=== PATIENT | male | born 1965 | race African-American/Black ===

== ENCOUNTER 2017-06-16 07:47 | Emergency (ER) | payer MEDICAID ==
[~2017-06-16] VITALS: Ht 175.3 cm; Wt 80.0 kg
[2017-06-16] MEDS ORDERED: SODIUM CHLORIDE 0.9% 1,000 ML IV ONE (08:05)
[2017-06-16] MEDS ORDERED: ONDANSETRON HCL 4MG/2ML VIAL IV ONE (08:15)
[2017-06-16] MEDS ORDERED: MORPHINE SULFATE 4 MG/ML CPJ (NOT FOR IM USE) IV ONE (08:15)
[2017-06-16 08:25] LABS: BASOPHILS % 0.7 % (0.0-2.0); HEMATOCRIT. 39.2 % (42.0-52.0); HEMOGLOBIN. 13.2 g/dL (14.0-18.0); LYMPHOCYTES % 31.3 % (20.0-50.0); MEAN CORPUSCULAR VOLUME 91.7 fL (80.0-94.0); MEAN PLATELET VOLUME 8.1 fl (7.4-10.4); MONOCYTES % 9.2 % (2.0-8.0); NEUTROPHILS % 57.8 % (40.0-76.0); PLATELET 209 x1000/uL (130-400); RED BLOOD CELL COUNT 4.27 mill/uL (4.7-6.1); RED CELL DISTRIBUTION WIDTH 14.5 % (11.6-14.6)
[2017-06-16 08:31] LABS: PROTHROMBIN TIME 10.9 sec (9.4-11.6)
[2017-06-16 08:37] LABS: CARBON DIOXIDE 26 mEq/L (21-32); CHLORIDE 110 mEq/L (98-107); ETHANOL BLOOD < 10 mg/dL; LDL CHOLESTEROL 119 mg/dL (5-100)
[2017-06-16 08:40] LABS: CREATINE KINASE 136 IU/L (39-308); TROPONIN I 0.02 ng/mL (0.00-0.04)
[2017-06-16] MEDS ORDERED: DEXAMETHASONE 10 MG/ML VIAL IV ONE (09:45)
[2017-06-16 09:53] LABS: CLARITY URINE CLEAR (CLEAR); COLOR URINE YELLOW (YELLOW); GLUCOSE URINE NEGATIVE (NEGATIVE); KETONES URINE NEGATIVE (NEGATIVE); LEUKOCYTE ESTERASE URINE NEGATIVE (NEGATIVE); NITRITE URINE NEGATIVE (NEGATIVE); OCCULT BLOOD URINE TRACE (NEGATIVE); PROTEIN URINE NEGATIVE (NEGATIVE); SPECIFIC GRAVITY URINE 1.032 (1.005-1.030)
[2017-06-16 10:04] LABS: *AMPHETAMINES SCREEN URINE NEGATIVE (NEGATIVE); *BARBITURATES SCREEN URINE NEGATIVE (NEGATIVE); *BENZODIAZEPINES SCREEN URINE NEGATIVE (NEGATIVE); *COCAINE SCREEN URINE NEGATIVE (NEGATIVE); CANNABINOID URINE SCREEN PRESUMTIVE POSITIVE (NEGATIVE); METHADONE URINE SCREEN NEGATIVE (NEGATIVE); OPIATES URINE SCREEN PRESUMTIVE POSITIVE (NEGATIVE); PHENCYCLIDINE URINE SCREEN NEGATIVE (NEGATIVE)
[2017-06-16 10:23] VITALS: BP 163/48
[2017-06-16] MEDS ORDERED: IOHEXOL-350 100 ML BOTTLE ONE (13:08)
[2017-06-16] MEDS ORDERED: SODIUM CHLORIDE 0.9% 10ML VIAL ONE (13:08)
== END 2017-06-16 10:50 | disposition home or self-care (01) ==
LOC: ER 08:52
DX: R51 Headache (principal); I10 Essential (primary) hypertension; I25.2 Old myocardial infarction; Z86.79 Personal history of other diseases of the circulatory system; Z87.891 Personal history of nicotine dependence; Z86.73 Personal history of transient ischemic attack (TIA), and cerebral infarction without residual deficits
CPT/HCPCS: 36415; 70496; 71010; 80053; 80305; 81001; 82550; 83721; 83880; 84484; 85025; 85610; 93005; 96361; 96374; 96375; 99285; A4216; G0482; J1100; J2270; J2405; J7030; Q9967; Z7610

== ENCOUNTER 2017-07-31 09:59 | Inpatient (IN) | payer MEDICAID ==
[2017-07-31] VITALS (33 sets, daily range): BP systolic 102–149; BP diastolic 59–116
[~2017-07-31] VITALS: Ht 175.3 cm; Wt 80.7 kg
[2017-07-31] MEDS ORDERED: SODIUM CHLORIDE 0.9% 1,000 ML IV ONE (10:17)
[2017-07-31 10:41] LABS: BASOPHILS % 0.7 % (0.0-2.0); EOSINOPHILS % 1.5 % (0.0-5.0); HEMATOCRIT. 42.8 % (42.0-52.0); HEMOGLOBIN. 14.5 g/dL (14.0-18.0); LYMPHOCYTES % 33.6 % (20.0-50.0); MEAN CORPUSCULAR HEMOGLOBIN 30.8 pg (28.0-32.0); MEAN CORPUSCULAR VOLUME 90.9 fL (80.0-94.0); MEAN PLATELET VOLUME 7.8 fl (7.4-10.4); NEUTROPHILS % 56.2 % (40.0-76.0); PLATELET 223 x1000/uL (130-400); RED BLOOD CELL COUNT 4.71 mill/uL (4.7-6.1); RED CELL DISTRIBUTION WIDTH 13.9 % (11.6-14.6)
[2017-07-31 10:51] LABS: PROTHROMBIN TIME 10.7 sec (9.4-11.6)
[2017-07-31 10:56] LABS: CARBON DIOXIDE 29 mEq/L (21-32); CHLORIDE 107 mEq/L (98-107)
[2017-07-31] MEDS ORDERED: NICARDIPINE 100 MG in SODIUM CHLORIDE 0.9% 60 ML IV PRN ×2 (13:00→14:15)
[2017-07-31] MEDS ORDERED: NICARDIPINE 40MG/200ML PREMIX 200 ML IV PRN (13:00)
[2017-07-31] MEDS ORDERED: MORPHINE SULFATE 10 MG/ML CPJ IV PRN (13:00)
[2017-07-31] MEDS ORDERED: LEVETIRACETAM 500MG PREMIX 100 ML IV SCH (13:00)
[2017-07-31] MEDS ORDERED: IPRATROPIUM/ALBUTEROL 0.5-3(2.5)MG/3ML NEB INH PRN (14:00)
[2017-07-31] MEDS ORDERED: DOCUSATE SODIUM 100MG CAPSULE PO PRN (14:00)
[2017-07-31] MEDS ORDERED: ACETAMINOPHEN 325MG TABLET PO PRN (14:00)
[2017-07-31] MEDS ORDERED: ONDANSETRON HCL 4MG/2ML VIAL IV PRN (14:00)
[2017-07-31] MEDS ORDERED: HYDROCODONE/ACETAMINOPHEN 5/325MG TABLET PO PRN (14:00)
[2017-07-31] MEDS ORDERED: IOHEXOL-350 100 ML BOTTLE ONE (14:15)
[2017-07-31] MEDS ORDERED: LEVE500T19 PO (15:58)
[2017-07-31] MEDS ORDERED: LISI10TA5 PO (16:00)
[2017-07-31] MEDS ORDERED: ATOR20TA65 PO (16:00)
[2017-07-31] MEDS ORDERED: ASPI-986 PO (16:00)
[2017-07-31] MEDS ORDERED: CLOP75TA33 PO (16:00)
[2017-07-31] MEDS: DEXT 5%/LACTATED RINGERS 1,000 ML IV SCH (16:00)
[2017-07-31 17:19] LABS: CARBON DIOXIDE 26 mEq/L (21-32); CHLORIDE 108 mEq/L (98-107)
[2017-07-31 17:27] LABS: CREATINE KINASE 99 IU/L (39-308); CREATINE KINASE MB FRACTION 1.7 ng/mL (0.5-3.6); TROPONIN I < 0.02 ng/mL (0.00-0.04)
[2017-07-31 19:26] LABS: CLARITY URINE CLEAR (CLEAR); COLOR URINE YELLOW (YELLOW); GLUCOSE URINE NEGATIVE (NEGATIVE); KETONES URINE NEGATIVE (NEGATIVE); LEUKOCYTE ESTERASE URINE NEGATIVE (NEGATIVE); NITRITE URINE NEGATIVE (NEGATIVE); OCCULT BLOOD URINE NEGATIVE (NEGATIVE); PH URINE 6.5 (4.5-8.0); PROTEIN URINE NEGATIVE (NEGATIVE)
[2017-07-31 19:48] LABS: *AMPHETAMINES SCREEN URINE NEGATIVE (NEGATIVE); *BARBITURATES SCREEN URINE NEGATIVE (NEGATIVE); *BENZODIAZEPINES SCREEN URINE NEGATIVE (NEGATIVE); *COCAINE SCREEN URINE NEGATIVE (NEGATIVE); CANNABINOID URINE SCREEN PRESUMTIVE POSITIVE (NEGATIVE); METHADONE URINE SCREEN NEGATIVE (NEGATIVE); OPIATES URINE SCREEN NEGATIVE (NEGATIVE); PHENCYCLIDINE URINE SCREEN NEGATIVE (NEGATIVE)
[2017-07-31] MEDS: LEVETIRACETAM 500MG PREMIX 100 ML IV SCH (19:54)
[2017-08-01] VITALS (36 sets, daily range): BP systolic 93–162; BP diastolic 43–111
[2017-08-01 00:45] LABS: CREATINE KINASE 70 IU/L (39-308); CREATINE KINASE MB FRACTION 1.6 ng/mL (0.5-3.6); TROPONIN I < 0.02 ng/mL (0.00-0.04)
[2017-08-01 05:14] LABS: BASOPHILS % 0.5 % (0.0-2.0); EOSINOPHILS % 1.3 % (0.0-5.0); HEMATOCRIT. 41.8 % (42.0-52.0); LYMPHOCYTES % 30.9 % (20.0-50.0); MEAN CORPUSCULAR HEMOGLOBIN 30.8 pg (28.0-32.0); MEAN CORPUSCULAR VOLUME 91.5 fL (80.0-94.0); MEAN PLATELET VOLUME 8.1 fl (7.4-10.4); MONOCYTES % 7.6 % (2.0-8.0); NEUTROPHILS % 59.7 % (40.0-76.0); PLATELET 213 x1000/uL (130-400); RED BLOOD CELL COUNT 4.56 mill/uL (4.7-6.1); RED CELL DISTRIBUTION WIDTH 13.9 % (11.6-14.6)
[2017-08-01] MEDS: LEVETIRACETAM 500MG PREMIX 100 ML IV SCH ×2 (09:03→22:09)
[2017-08-01] MEDS: DEXT 5%/LACTATED RINGERS 1,000 ML IV SCH ×2 (09:04→17:33)
[2017-08-01] MEDS ORDERED: CLONIDINE 0.1MG TABLET PO PRN (14:00)
[2017-08-01] MEDS: NIFEDIPINE XL 60MG TAB PO SCH (14:14)
[2017-08-02] VITALS: BP 121/79
[2017-08-02 04:00] VITALS: BP 141/82
[2017-08-02 06:14] LABS: BASOPHILS % 0.3 % (0.0-2.0); EOSINOPHILS % 1.8 % (0.0-5.0); HEMOGLOBIN. 13.3 g/dL (14.0-18.0); LYMPHOCYTES % 38.7 % (20.0-50.0); MEAN CORPUSCULAR HEMOGLOBIN 30.3 pg (28.0-32.0); MEAN CORPUSCULAR VOLUME 91.4 fL (80.0-94.0); MEAN PLATELET VOLUME 8.3 fl (7.4-10.4); NEUTROPHILS % 49.2 % (40.0-76.0); PLATELET 213 x1000/uL (130-400); RED BLOOD CELL COUNT 4.37 mill/uL (4.7-6.1); RED CELL DISTRIBUTION WIDTH 13.7 % (11.6-14.6)
[2017-08-02 06:30] LABS: CARBON DIOXIDE 28 mEq/L (21-32); CHLORIDE 106 mEq/L (98-107)
[2017-08-02 08:00] VITALS: BP 135/75
[2017-08-02] MEDS: LEVETIRACETAM 500MG PREMIX 100 ML IV SCH ×2 (09:53→21:59)
[2017-08-02] MEDS: NIFEDIPINE XL 60MG TAB PO SCH (09:55)
[2017-08-02] MEDS: SILVER SULFADIAZINE 1% CREAM 50GM TOP SCH (09:58)
[2017-08-02 12:00] VITALS: BP 132/94
[2017-08-02 16:00] VITALS: BP 130/70
[2017-08-02 20:00] VITALS: BP 131/85
[2017-08-03] VITALS: BP 119/83
[2017-08-03 04:00] VITALS: BP 133/86
[2017-08-03 08:00] VITALS: BP 135/87
[2017-08-03] MEDS: NIFEDIPINE XL 60MG TAB PO SCH (08:40)
[2017-08-03] MEDS: SILVER SULFADIAZINE 1% CREAM 50GM TOP SCH (08:41)
[2017-08-03] MEDS: LEVETIRACETAM 500MG PREMIX 100 ML IV SCH (09:00)
[2017-08-03 12:00] VITALS: BP 131/88
[2017-08-03 16:00] VITALS: BP 137/91
[2017-08-03 17:19] VITALS: BP 137/88
== END 2017-08-03 18:40 | disposition home or self-care (01) | DRG 44 ==
LOC: ER 11:21 → MICUSO 12:51 → ENRESERV 13:01 → 6EST 08-01 13:17
PROVIDERS: ADMIT Internal Medicine; ATTEND Internal Medicine
DX: I61.3 Nontraumatic intracerebral hemorrhage in brain stem (principal); R47.01 Aphasia; I10 Essential (primary) hypertension; E78.00 Pure hypercholesterolemia, unspecified; R47.1 Dysarthria and anarthria; R26.81 Unsteadiness on feet; E78.5 Hyperlipidemia, unspecified; F12.90 Cannabis use, unspecified, uncomplicated; I25.10 Atherosclerotic heart disease of native coronary artery without angina pectoris; I25.2 Old myocardial infarction; Z79.82 Long term (current) use of aspirin; Z79.899 Other long term (current) drug therapy; Z82.49 Family history of ischemic heart disease and other diseases of the circulatory system; Z87.891 Personal history of nicotine dependence; Z86.73 Personal history of transient ischemic attack (TIA), and cerebral infarction without residual deficits
CPT/HCPCS: 36415; 70450; 70496; 71010; 80048; 80053; 80061; 80305; 81003; 82550; 82553; 82962; 84443; 84484; 85025; 85610; 92523; 92610; 93005; 93970; 96360; 96361; 97112; 97116; 97162; 97166; 99291; G0482; J1953; J7030; J7050; Q9967

== ENCOUNTER 2019-02-24 12:50 | Emergency (ER) | payer MEDICAID ==
[~2019-02-24] VITALS: Ht 175.3 cm; Wt 90.6 kg
[~2019-02-24 12:50] MED LIST: ASPI-986 PO; ATOR20TA65 PO; CLOP75TA33 PO; LEVE500T19 PO; LISI10TA5 PO
[2019-02-24] MEDS ORDERED: WARF3TAB28 MT (13:02)
[2019-02-24 13:21] LABS: BASOPHILS % 0.7 % (0.0-2.0); EOSINOPHILS % 0.5 % (0.0-5.0); HEMATOCRIT. 46.8 % (42.0-52.0); HEMOGLOBIN. 15.7 g/dL (14.0-18.0); LYMPHOCYTES % 25.9 % (20.0-50.0); MEAN CORPUSCULAR HEMOGLOBIN 29.8 pg (28.0-32.0); MEAN CORPUSCULAR VOLUME 89.1 fL (80.0-94.0); MEAN PLATELET VOLUME 7.7 fl (7.4-10.4); MONOCYTES % 7.6 % (2.0-8.0); NEUTROPHILS % 65.3 % (40.0-76.0); PLATELET 298 x1000/uL (130-400); RED BLOOD CELL COUNT 5.25 mill/uL (4.7-6.1); RED CELL DISTRIBUTION WIDTH 13.8 % (11.6-14.6)
[2019-02-24 13:29] LABS: CHLORIDE 108 mEq/L (98-107); INR 2.1; PARTIAL THROMBOPLASTIN TIME 38.8 sec (23.4-31.0); PROTHROMBIN TIME 20.7 sec (9.6-11.0)
[2019-02-24 13:34] LABS: ETHANOL BLOOD < 10 mg/dL
[2019-02-24 13:37] LABS: LDL CHOLESTEROL 119 mg/dL (5-100)
[2019-02-24 13:46] LABS: VALPROIC ACID < 3.0 ug/mL (50-100)
[2019-02-24 14:15] LABS: CLARITY URINE CLEAR (CLEAR); COLOR URINE YELLOW (YELLOW); KETONES URINE NEGATIVE (NEGATIVE); LEUKOCYTE ESTERASE URINE NEGATIVE (NEGATIVE); NITRITE URINE NEGATIVE (NEGATIVE); OCCULT BLOOD URINE 1+ (NEGATIVE); PROTEIN URINE NEGATIVE (NEGATIVE); SPECIFIC GRAVITY URINE 1.042 (1.005-1.030); UROBILINOGEN URINE 0.2 E.U./dL (0.2-1.0)
[2019-02-24] MEDS ORDERED: ONDANSETRON HCL 4MG/2ML INJ IV ONE ×2 (14:30→17:45)
[2019-02-24] MEDS ORDERED: MORPHINE SULFATE 4 MG/ML CPJ (NOT FOR IM USE) IV ONE ×2 (14:30→17:45)
[2019-02-24 14:45] LABS: *AMPHETAMINES SCREEN URINE NEGATIVE (NEGATIVE); *BARBITURATES SCREEN URINE NEGATIVE (NEGATIVE); *BENZODIAZEPINES SCREEN URINE NEGATIVE (NEGATIVE); *COCAINE SCREEN URINE NEGATIVE (NEGATIVE)
[2019-02-24 14:46] LABS: CANNABINOID URINE SCREEN PRESUMTIVE POSITIVE (NEGATIVE); METHADONE URINE SCREEN NEGATIVE (NEGATIVE); OPIATES URINE SCREEN PRESUMTIVE POSITIVE (NEGATIVE); PHENCYCLIDINE URINE SCREEN NEGATIVE (NEGATIVE)
[2019-02-24] MEDS ORDERED: IOHEXOL-350 100 ML BOTTLE ONE (15:20)
[2019-02-24 17:56] VITALS: BP 140/93
== END 2019-02-24 18:07 | disposition short-term general hospital (02) ==
LOC: ER 12:50 → CANBEDREQ 14:13 → ER 18:07
DX: I63.89 Other cerebral infarction (principal); H53.8 Other visual disturbances; I10 Essential (primary) hypertension; Z95.5 Presence of coronary angioplasty implant and graft; Z79.01 Long term (current) use of anticoagulants; Z86.73 Personal history of transient ischemic attack (TIA), and cerebral infarction without residual deficits; I25.2 Old myocardial infarction
CPT/HCPCS: 36415; 70450; 70496; 70498; 71045; 80053; 80165; 80305; 80320; 81003; 82962; 83690; 83721; 83735; 83880; 84484; 85025; 85610; 85730; 93005; 96374; 96375; 96376; 99291; J2270; J2405; Q9967; G0480

== ENCOUNTER 2021-09-23 20:04 | Inpatient (IN) | payer MEDICAID, OTHER ==
[~2021-09-23] VITALS: Ht 175.3 cm; Wt 95.9 kg
[~2021-09-23 20:04] MED LIST changes: +AMLO10TA4 PO; +ASPI-1497 PO; -ASPI-986 PO; -CLOP75TA33 PO; +DIVA-73 PO; +ESCI-7 PO; -LISI10TA5 PO
[2021-09-23] MEDS ORDERED: SODIUM CHLORIDE 0.9% 1,000 ML IV ONE (20:45)
[2021-09-23 21:39] LABS: BASOPHILS % 0.4 % (0.0-2.0); EOSINOPHILS % 0.4 % (0.0-5.0); HEMATOCRIT. 45.5 % (42.0-52.0); HEMOGLOBIN. 15.1 g/dL (14.0-18.0); LYMPHOCYTES % 25.1 % (20.0-50.0); MEAN CORPUSCULAR HEMOGLOBIN 29.6 pg (28.0-32.0); MEAN CORPUSCULAR VOLUME 89.1 fL (80.0-94.0); MEAN PLATELET VOLUME 8.3 fl (7.4-10.4); MONOCYTES % 5.2 % (2.0-8.0); NEUTROPHILS % 68.9 % (40.0-76.0); PLATELET 250 x1000/uL (130-400); RED BLOOD CELL COUNT 5.11 mill/uL (4.7-6.1); RED CELL DISTRIBUTION WIDTH 15.9 % (11.6-14.6)
[2021-09-23 21:44] LABS: CHLORIDE 110 mEq/L (98-107)
[2021-09-24 06:00] VITALS: BP 130/90
[2021-09-24] MEDS ORDERED: ACETAMINOPHEN 325MG TABLET PO PRN (06:45)
[2021-09-24 08:00] VITALS: BP 130/86
[2021-09-24] MEDS: ATORVASTATIN CALCIUM 20MG TABLET PO SCH (09:28)
[2021-09-24] MEDS: LEVETIRACETAM 500MG TABLET PO SCH ×2 (09:29→16:29)
[2021-09-24] MEDS: AMLODIPINE 10MG TABLET PO SCH (09:29)
[2021-09-24] MEDS: DIVALPROEX SODIUM 250MG DR TABLET PO SCH ×2 (09:29→16:29)
[2021-09-24 12:00] VITALS: BP 118/88
[2021-09-24 16:07] VITALS: BP 100/65
[2021-09-24 19:49] LABS: *AMPHETAMINES SCREEN URINE NEGATIVE (NEGATIVE); *BARBITURATES SCREEN URINE NEGATIVE (NEGATIVE); *BENZODIAZEPINES SCREEN URINE NEGATIVE (NEGATIVE); *COCAINE SCREEN URINE NEGATIVE (NEGATIVE); METHADONE URINE SCREEN NEGATIVE (NEGATIVE)
[2021-09-24 19:50] LABS: CANNABINOID URINE SCREEN PRESUMTIVE POSITIVE (NEGATIVE); OPIATES URINE SCREEN NEGATIVE (NEGATIVE); PHENCYCLIDINE URINE SCREEN NEGATIVE (NEGATIVE)
[2021-09-24 20:00] VITALS: BP 125/83
[2021-09-24] MEDS ORDERED: MEDICATION NOT ON FORMULARY EA (Escitalopram Oxalate 10 MG) PO SCH (21:00)
[2021-09-24] MEDS ORDERED: CITALOPRAM HYDROBROMIDE 10MG TABLET PO SCH (21:00)
[2021-09-25] VITALS: BP 120/80
[2021-09-25 04:00] VITALS: BP 130/87
[2021-09-25 08:00] VITALS: BP 126/84
[2021-09-25] MEDS: DIVALPROEX SODIUM 250MG DR TABLET PO SCH (08:57)
[2021-09-25] MEDS: ATORVASTATIN CALCIUM 20MG TABLET PO SCH (08:57)
[2021-09-25] MEDS: AMLODIPINE 10MG TABLET PO SCH (08:57)
[2021-09-25] MEDS: LEVETIRACETAM 500MG TABLET PO SCH (08:57)
[2021-09-25] MEDS ORDERED: IOHEXOL-350 100 ML BOTTLE ONE (10:16)
[2021-09-25 12:00] VITALS: BP 108/60
[2021-09-25 13:28] VITALS: BP 108/60
== END 2021-09-25 14:38 | disposition home or self-care (01) | DRG 48 ==
LOC: ER 20:04 → 7EST 23:17 → EDBEDREQTM 23:19 → EDBEDREQ 23:19 → ENRESERV 09-24 04:23
PROVIDERS: ADMIT Internal Medicine; ATTEND Internal Medicine
PROC: 4A10X4Z Monitoring of Central Nervous Electrical Activity, External Approach (ICD-10-PCS; principal; 2021-09-25)
PROC: B54MZZA Ultrasonography of Right Upper Extremity Veins, Guidance (ICD-10-PCS; 2021-09-25)
PROC: 05HY33Z Insertion of Infusion Device into Upper Vein, Percutaneous Approach (ICD-10-PCS; 2021-09-25)
DX: G90.8 Other disorders of autonomic nervous system (principal); E44.1 Mild protein-calorie malnutrition; E87.8 Other disorders of electrolyte and fluid balance, not elsewhere classified; R47.01 Aphasia; I69.354 Hemiplegia and hemiparesis following cerebral infarction affecting left non-dominant side; G93.89 Other specified disorders of brain; E66.9 Obesity, unspecified; F12.90 Cannabis use, unspecified, uncomplicated; G40.909 Epilepsy, unspecified, not intractable, without status epilepticus; I10 Essential (primary) hypertension; Z20.822 Contact with and (suspected) exposure to COVID-19; E78.00 Pure hypercholesterolemia, unspecified; R26.89 Other abnormalities of gait and mobility; R20.0 Anesthesia of skin; Z79.82 Long term (current) use of aspirin; Z79.899 Other long term (current) drug therapy; Z71.3 Dietary counseling and surveillance; Z68.31 Body mass index [BMI] 31.0-31.9, adult
CPT/HCPCS: 36415; 70496; 71045; 76937; 80053; 80305; 84484; 85025; 87426; 93005; 99285; C1725; J7030; J7040; Q9967

== ENCOUNTER 2022-09-11 13:57 | Emergency (ER) | payer MEDICAID, OTHER ==
[~2022-09-11] VITALS: Ht 175.3 cm; Wt 90.0 kg
[2022-09-11] MEDS ORDERED: DIPHENHYDRAMINE 50MG/ML VIAL IV ONE (15:30)
[2022-09-11] MEDS ORDERED: METHYLPREDNISOLONE SOD SUCC 125 MG/2 ML VIAL IV ONE (15:30)
[2022-09-11] MEDS ORDERED: FAMOTIDINE 20MG/2ML VIAL IV ONE (15:30)
[2022-09-11 15:59] LABS: BASOPHILS % 0.8 % (0.0-2.0); EOSINOPHILS % 0.6 % (0.0-5.0); HEMATOCRIT. 47.7 % (42.0-52.0); HEMOGLOBIN. 16.1 g/dL (14.0-18.0); LYMPHOCYTES % 32.1 % (20.0-50.0); MEAN CORPUSCULAR HEMOGLOBIN 30.1 pg (28.0-32.0); MEAN CORPUSCULAR VOLUME 89.2 fL (80.0-94.0); MEAN PLATELET VOLUME 8.2 fl (7.4-10.4); MONOCYTES % 5.7 % (2.0-8.0); NEUTROPHILS % 60.8 % (40.0-76.0); PLATELET 313 x1000/uL (130-400); RED BLOOD CELL COUNT 5.35 mill/uL (4.7-6.1)
[2022-09-11 16:07] LABS: CHLORIDE 111 mEq/L (98-107)
[2022-09-11] MEDS ORDERED: FAMOTIDINE 20MG TABLET PO ONE (17:45)
[2022-09-11] MEDS ORDERED: PREDNISONE 20MG TABLET PO ONE (17:45)
[2022-09-11] MEDS ORDERED: DIPHENHYDRAMINE 50MG CAPSULE PO ONE (17:45)
[2022-09-11] MEDS ORDERED: DIPH25CA83 MT (19:45)
[2022-09-11] MEDS ORDERED: P50 MT (19:47)
[2022-09-11 20:15] VITALS: BP 110/65
== END 2022-09-11 20:32 | disposition home or self-care (01) ==
LOC: ER 13:57
DX: R22.0 Localized swelling, mass and lump, head (principal); R73.9 Hyperglycemia, unspecified; E87.8 Other disorders of electrolyte and fluid balance, not elsewhere classified; I10 Essential (primary) hypertension; I69.820 Aphasia following other cerebrovascular disease; I69.854 Hemiplegia and hemiparesis following other cerebrovascular disease affecting left non-dominant side; Z79.899 Other long term (current) drug therapy; Z79.82 Long term (current) use of aspirin
CPT/HCPCS: 36415; 80053; 85025; 99284; J7512; Q0163

== ENCOUNTER 2024-07-03 02:10 | Inpatient (IN) | payer MEDICAID, OTHER ==
[2024-07-02 02:10] VITALS: PULSE 65; RESP 22; O2SAT 84
[~2024-07-03] VITALS: Ht 170.2 cm; Wt 100.0 kg
[~2024-07-03 02:10] MED LIST changes: +DIPH25CA83 MT
[2024-07-03 02:11] VITALS: TEMP 37.11408; O2SAT 80
[2024-07-03 02:15] VITALS: PULSE 133
[2024-07-03 02:30] LABS: BG BASE EXCESS -15.7 mmol/L (-2.0-3.0); BG CARBOXYHEMOGLOBIN 0.6 % (0.5-1.5); BG DEOXYHEMOGLOBIN 11.7 % (0.0-5.0); BG FRACTION INSPIRED OXYGEN 100; BG HCO3 ACT 13.8 mmol/L (21.0-28.0); BG METHEMOGLOBIN 0.3 % (0.5-1.5); BG OXYGEN SATURATION 88.2 % (94.0-98.0); BG OXYHEMOGLOBIN 87.4 % (94.0-98.0); BG PCO2 46.3 mmHg (35.0-48.0); BG PH 7.091 (7.350-7.450); BG PO2 74.8 mmHg (83.0-108.0); BG SAMPLE SITE RIGHT RADIAL; BG TOTAL HEMOGLOBIN 13.6 g/dL (13.5-17.5); BG VENT MODE VENT - AC
[2024-07-03] MEDS ORDERED: ACETAMINOPHEN 650MG/20.3ML UDC NG PRN (02:30)
[2024-07-03] MEDS ORDERED: PROPOFOL 10MG/ML 100ML 100 ML IV PRN (02:30)
[2024-07-03] MEDS ORDERED: ACETAMINOPHEN 650MG SUPP PR PRN (02:30)
[2024-07-03] MEDS: SODIUM CHLORIDE 0.9% 1,000 ML IV ONE (02:44)
[2024-07-03] MEDS: HEPARIN 5000 UNITS/ML VIAL IV ONE (02:49)
[2024-07-03] MEDS: AMIODARONE HCL 900 MG in DEXT 5% WATER 500 ML IV PRN (02:50)
[2024-07-03 02:51] VITALS: BP 204/150; RESP 14; O2SAT 80
[2024-07-03] MEDS: PROPOFOL 10MG/ML 100ML 100 ML IV PRN (02:51)
[2024-07-03 03:06] LABS: CHLORIDE 104 mEq/L (98-107); SODIUM 146 mEq/L (136-145)
[2024-07-03 03:07] LABS: CARBON DIOXIDE 22 mEq/L (21-32)
[2024-07-03 03:08] LABS: CALCIUM 7.8 mg/dL (8.7-10.4)
[2024-07-03] MEDS: SODIUM BICARBONATE 150 MEQ in DEXTROSE 5% WATER 1,000 ML IV ONE (03:10)
[2024-07-03 03:12] LABS: CREATININE 1.9 mg/dL (0.6-1.3); UREA NITROGEN BLOOD 16 mg/dL (9-23)
[2024-07-03] MEDS ORDERED: MIDAZOLAM HCL 2 MG/2 ML VIAL ONE (03:12)
[2024-07-03] MEDS ORDERED: IODIXANOL 320MG/ML 100 ML BOTTLE IV ONE ×2 (03:12→04:10)
[2024-07-03] MEDS ORDERED: LIDOCAINE HCL 1% 10 MG/ML 10ML VIAL ONE (03:12)
[2024-07-03] MEDS ORDERED: FENTANYL CITRATE/PF 50MCG/ML 2ML VIAL ONE (03:12)
[2024-07-03] MEDS ORDERED: HEPARIN 1000 UNITS/ML 10ML ONE (03:12)
[2024-07-03 03:24] LABS: INR 1.2; PROTHROMBIN TIME 12.9 sec (9.6-11.0)
[2024-07-03] MEDS ORDERED: DOPAMINE 400MG/250ML PREMIX 250 ML IV ONE (03:24)
[2024-07-03] MEDS ORDERED: NOREPINEPHRINE 8MG/250ML PMX 250 ML IV ONE (03:25)
[2024-07-03 03:27] LABS: LACTIC ACID 14.9 mmol/L (0.4-2.0)
[2024-07-03 03:28] LABS: GLUCOSE 338 mg/dL (70-105); POTASSIUM 2.7 mEq/L (3.5-5.1)
[2024-07-03 03:29] LABS: ETHANOL BLOOD < 10 mg/dL (<10)
[2024-07-03 03:34] LABS: PHOSPHORUS 11.2 mg/dL (2.5-4.9)
[2024-07-03 03:35] LABS: TROPONIN I HIGH SENSITIVITY 1111 ng/L (3.0-53)
[2024-07-03] MEDS ORDERED: MAGNESIUM 2 G PREMIX 50 ML IV NR (03:45)
[2024-07-03] MEDS ORDERED: EPINEPHRINE 0.1MG/ML (1:10,000) 10ML SYR ONE ×2 (03:53→04:24)
[2024-07-03] MEDS ORDERED: KCL 20MEQ/100ML PREMIX 100 ML IV ONE (03:53)
[2024-07-03] MEDS ORDERED: KCL 20MEQ/100ML PREMIX 100 ML IV SCH (04:00)
[2024-07-03] MEDS ORDERED: EPTIFIBATIDE 2 MG/ML 10ML VIAL IV ONE (04:10)
[2024-07-03] MEDS ORDERED: AMIODARONE HCL 50MG/ML 3ML VIAL IV ONE (04:15)
[2024-07-03 07:20] LABS: D-DIMER > 35.20 mg/L FEU (<0.50)
== END 2024-07-03 07:00 | DRG 174 ==
LOC: ER 02:10 → CVICU 03:55
PROVIDERS: ADMIT Preventive Medicine Clinical Informatics; ATTEND Preventive Medicine Clinical Informatics
PROC: 02C03ZZ Extirpation of Matter from Coronary Artery, One Artery, Percutaneous Approach (ICD-10-PCS; principal; 2024-07-03)
PROC: 5A1935Z Respiratory Ventilation, Less than 24 Consecutive Hours (ICD-10-PCS; 2024-07-03)
PROC: 5A12012 Performance of Cardiac Output, Single, Manual (ICD-10-PCS; 2024-07-03)
PROC: 4A023N7 Measurement of Cardiac Sampling and Pressure, Left Heart, Percutaneous Approach (ICD-10-PCS; 2024-07-03)
PROC: 0BH17EZ Insertion of Endotracheal Airway into Trachea, Via Natural or Artificial Opening (ICD-10-PCS; 2024-07-03)
DX: I21.09 ST elevation (STEMI) myocardial infarction involving other coronary artery of anterior wall (principal); I46.9 Cardiac arrest, cause unspecified; J96.01 Acute respiratory failure with hypoxia; R57.9 Shock, unspecified; I49.01 Ventricular fibrillation; I25.10 Atherosclerotic heart disease of native coronary artery without angina pectoris; I10 Essential (primary) hypertension; Z79.899 Other long term (current) drug therapy; F17.200 Nicotine dependence, unspecified, uncomplicated; Z86.73 Personal history of transient ischemic attack (TIA), and cerebral infarction without residual deficits
CPT/HCPCS: 31500; 36415; 36600; 71045; 80048; 80320; 82375; 82805; 83605; 83735; 83880; 84100; 84484; 85379; 86850; 86900; 92941; 92950; 93005; 93454; 94003; 99291; C1725; C1769; C1893; J0282; J1265; J1327; J1644; J2250; J2704; J3010; J3480; J3490; J7030; J7070; Q9967; C1887; G0480